=== PATIENT | female | born 1965 ===

== ENCOUNTER 2025-04-07 10:43 | Outpatient (AMB) | payer MEDICAID, SELFPAY ==
--- NOTE | 2025-04-07 11:22 | AM.OFFWIN_ITS ---
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 Allergies No Known Allergies Allergy (Verified 04/07/25 11:31) Do you need a note to return to daycare/school/sports/work: No HPI HPI Comments History of Present Illness Details History of Present Illness The patient is a 59 year old female presenting with symptoms of an upper respiratory infection. - The patient reports a 3-day history of symptoms including nasal congestion and significant rhinorrhea. - She also experiences a cough, particul asim in the morning and at night. - She reports mild chills but has not ch ecked her temperature. - She denies shortness of breath, diffic ulty breathing, nausea, vomiting, or diarrhea. - She took an unknown [id number] m edication yesterday - A home COVID-19 test performed a day a go was negative. - Patient reports her grandson has also had similar symptoms for the last few days. Review of Systems Constitutional: Negative for fevers. Reprots chills. HENT: Reports congestion, rhinorrhea. Negative for sore throat, ear pain Respiratory: Reports cough. Negative for shortness of breath, chest tightness, wheezing Cardiac: Negative for chest pain Gastrointestinal: Negative for abdominal pain, nausea, vomiting, diarrhea, Musculoskeletal: Negative for myalgias, Physical Exam General Appearance: Normal appearance, well developed. No acute distress ENT: External ears normal. Left ear canal noted to have retained cotton. Right ear canal and TM WNL. Clear nasal drainage present Oropharynx clear without erythema or exudate. Head: Normocephalic, atraumatic Pulmonary: No respiratory distress. Clear to auscultation bilaterally. Cardiac: Regular rate and rhythm. No murmurs. Musculoskeletal: Moving all extremities spontaneously and against gravity Mental Status: Alert and Oriented x 3 Psychiatric: Normal mood. Normal affect. Physical Exam Vital Signs: Last Vital Signs Temp 98.6 F 04/07/25 11:25 Pulse 67 04/07/25 11:25 Resp 16 04/07/25 11:25 BP 124/67 04/07/25 11:25 Pulse Ox 98 04/07/25 11:25 Oxygen Delivery Method Room Air 04/07/25 11:25 BMI result Body Mass Index 26.6 Assessment & Plan Assessment & Plan (1) Viral URI: Code(s): J06.9 - Acute upper respiratory infection, unspecified (2) Foreign body in left ear: Code(s): T16.2XXA - Foreign body in left ear, initial encounter Qualifiers: Encounter type: initial encounter Qualified Code(s): T16.2XXA - Foreign body in left ear, initial encounter Plan - The patient's presentation with a 3-day history of nasal congestion, rhinorrhea, and cough, along with clear lungs on exam and a negative home COVID test, is most consistent with a viral URI. - The plan is for symptomatic management. - Advised rest and increased fluids - She was advised to take benj-[id number] Mucinex and Zyrtec to help with drainage - She was counseled on the potential side effects of Zyrtec, including drowsiness and dry eye/ dry mouth. - Return precautions were given, including worsening cough, fever, or shortness of breath. 3. Foreign body in ear canal - A cotton foreign body in the left ear was identified on otoscopic exam. - This was removed with foceps in the office. - Upon repeat visualization, left ear canal was clear with intact left TM without any erythema or bulging - The patient was counseled on avoiding the use of cotton swabs inside the ear canal to prevent recurrence. Patient was informed and verbally consented to the use of an ambient scribe for clinic note documentation during the visit. Coding Level of Care Code Est Pt Level 3 (84215) Diagnoses Viral URI J06.9 Foreign body of left ear, initial encounter T16.2XXA Encounter type: initial encounter
[2025-04-07 11:25] VITALS: BP 124/67; PULSE 67; RESP 16; TEMP 37; O2SAT 98; BMI 26.6
--- OUTSIDE RECORDS SUMMARY | 2025-04-07 13:39 | XMS_ITS | Clinical Summary ---
Author Organization [address] Address [address] [place] [phone] Phone Care Team Providers Care Air Traffic Control Specialist Name Role Phone Unavailable Primary Care Provider Unavailabl e Allergies No known active allergies Medications diclofenac (VOLTAREN) 0.1 % ophthalmic solution Place 1 drop into both eyes 4 (four) times daily. Active naproxen (NAPROSYN) 500 mg tablet Take 1 tablet (500 mg total) by mouth 2 (two) times daily with breakfast and dinner. Active gabapentin (NEURONTIN) 600 mg tabletIndicatio ns:Encounter for medication refill Take 1 tablet (600 mg total) by mouth daily. 90 tablet 1 01/14/2023 2:55 PM EDT 3 Active aspirin 81 mg EC delayed release tabletIndicatio ns:Encounter for medication refill Take 1 tablet (81 mg total) by mouth daily. 30 tablet 2 01/14/2023 2:55 PM EDT 3 Active atorvastatin (LIPITOR) 40 mg tabletIndicatio ns:Encounter for medication refill Take 1 tablet (40 mg total) by mouth daily. 90 tablet 01/14/2023 2:55 PM EDT 3 Active carvediloL (COREG) 6.25 mg Immediate Release tabletIndicatio ns:Encounter for medication refill Take 1 tablet (6.25 mg total) by mouth 2 (two) times daily with breakfast and dinner. 180 tablet 01/14/2023 2:55 PM EDT 3 Active cholecalciferol (VITAMIN D-3) 50 mcg (2,000 unit) capsuleIndicati ons:Encounter for medication refill Take 1 capsule (2,000 Units total) by mouth daily. 90 capsule 01/20/2023 12:07 PM EDT 3 Active ferrous sulfate (FEOSOL) 325 mg (65 mg iron) tabletIndicatio ns:Encounter for medication refill Take 1 tablet (325 mg total) by mouth daily. 90 tablet 01/14/2023 2:55 PM EDT 3 Active lisinopriL (PRINIVIL,ZESTR IL) 20 mg tabletIndicatio ns:Encounter for medication refill Take 1 tablet (20 mg total) by mouth daily. 90 tablet 01/14/2023 2:55 PM EDT 3 Active omeprazole (PRILOSEC) 20 mg capsuleIndicati ons:Encounter for medication refill Take 1 capsule (20 mg total) by mouth daily. 90 capsule 01/14/2023 2:55 PM EDT 3 Active simethicone (MYLICON) 125 mg chewable tabletIndicatio ns:Encounter for medication refill Take 1 tablet (125 mg total) by mouth every 6 (six) hours as needed for flatulence. 30 tablet 1 3 Active Family History Medical History Relation Name Comments Heart attack Father Diabetes Mother High cholesterol Mother Hypertension Mother Relation Name Status Comments Father Mother Alive Social History Tobacco Use Types Packs/Day Years Used Date Smoking Tobacco: Never Smokeless Tobacco: Never Tobacco Cessation:Counseling Given: Not Answered Alcohol Use Standard Drinks/Week Comments Never 0 (1 standard drink = 0.6 oz pur e alcohol) Comments Unknown Sex and Gender Information Value Date Recorded Sex Assigned at Female 01/13/2023 1:32 PM EDT Legal Sex Female 1:26 PM EDT Gender Identity Female 01/13/2023 1:32 PM EDT Sexual Orientation Straight 01/13/2023 1: 32 PM EDT Last Filed Vital Signs Vital Sign Reading Time Taken Comments Blood Pressure 134/77 01/14/2023 1:47 PM EDT Pulse 67 01/14/2023 1:47 PM EDT Temperature - - Respiratory Rate - - Oxygen Saturation 98% 01/14/2023 1:47 PM EDT Inhaled Oxygen Concentration - - Weight - - Height - - Body Mass Index - - Plan of Treatment Health Maintenance Due Date Last Done Comments HIV screening 08/19/1979 Hepatitis C screening 1984 Tetanus adult (Td q 10,TDAP once) 1986 Cervical cancer screening 08/19/1987 Breast cancer screening 2006 Lipid disorder screening 2006 Colon cancer screening, Colonoscopy 08/19/2011 Diabetes screening 08/19/2011 Pneumococcal Vaccine (50+ ye ars) (1 of 1 - PCV) 2016 Shingles vaccine (Shingrix) (1 of 2 - Shingrix (RZV) 2 Dose Standard Series) 2016 Influenza vaccine 11/19/2024 Covid-19 vaccine series (1 - 2024- season) 2024 RSV Immunization (1 - 1-dose 75+ series) 2041 Meningococcal B Vaccine Aged Out No l onger eligible based on patient's age to complete this topic Meningococcal Vaccine Aged Out No deanne ernesto eligible based on patient's age to complete this topic Insurance MEDICAID [place]
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
--- OUTSIDE RECORDS SUMMARY | 2025-04-07 13:39 | XMS_ITS | Clinical Summary ---
Author Organization [employer] Address [address] [place] [address] Care Team Providers Care Workflow Developer Name Role Phone Unavailable Primary Care Provider Unavailabl e Social History Tobacco Use Types Packs/Day Years Used Date Smoking Tobacco: Never Assessed Comments Unknown Sex and Gender Information Value Date Recorded Sex Assigned at Not on file Legal Sex Female 9:22 PM EDT Gender Identity Not on file Sexual Orientation Not on file Plan of Treatment Health Maintenance Due Date Last Done Comments CT Colonography 1966 Colonoscopy 1966 Colorectal Cancer Screening 1966 Depression Screening 1966 FIT DNA/Cologuard 1966 FIT 1966 FOBT 1966 Lipid Panel 1966 SDOH Screening 1966 Sigmoidoscopy 1966 Disability Screening 1966 Alcohol/Substance Use Screening 1978 Tobacco Screening 1978 Hepatitis C Screening 1984 Pap Smear 08/19/1987 Cervical Cancer Screening 1996 HPV/Cotest 1996 Mammogram 2006 RSV Patients and Patients Aged 60 years or older (1 - Risk 50-74 years 1-dose series) 2016 Pneumococcal Vaccine: 50+ Years (2 of 2 - PCV) 08/16/2022 08/16/2021 Zoster Vaccines (2 of 2) 01/08/2023 11/13/2022 Hepatitis B Vaccines (2 of 3 - Hep B Twinrix 3-dose series) 01/16/2024 12/19/2023 COVID-19 Vaccine (1 - 2024-2 6 season) 2024 Influenza Vaccine (#1) 2024 , 07/05/2022 DTaP/Tdap/Td Vaccines (2 - T d or Tdap) 11/13/2032 11/13/2022 HIV Screening Completed 03/29/2022 Hepatitis A Vaccines Aged [...] patient's age to complete this topic RSV under 20 months Aged Out No longe r eligible based on patient's age to complete this topic Rotavirus Vaccines Aged Out No longer eligible based on patient's age to complete this topic
== END 2025-04-07 12:01 | disposition home or self-care (01) ==
LOC: HO.HMCWIS 10:43
PROVIDERS: Visit Provider Family Medicine
DX: J06.9 Acute upper respiratory infection, unspecified (principal); T16.2XXA Foreign body in left ear, initial encounter

== ENCOUNTER → 2025-04-07 10:43 | Outpatient (BNVA) | payer MEDICAID, SELFPAY | PROVIDERS: Visit Provider Family Medicine | DX: J06.9 Acute upper respiratory infection, unspecified (principal); T16.2XXA Foreign body in left ear, initial encounter | CPT/HCPCS: 69200; 99212 ==